=== PATIENT | female | born 1995 | race African-American/Black ===

== ENCOUNTER 2018-04-20 20:31 | Emergency (ER) | payer OTHER ==
[2018-04-20 20:41] VITALS: BP 123/78; PULSE 80; TEMP 98.7; BMI 36.6
--- NOTE | 2018-04-20 20:45 | PDOC ---
History of Present Illness - General History Source: Patient Exam Limitations: No Limitations - History of Present Illness Initial Comments: 04/20/18 21:03 The patient is a 23 year old female with a significant past medical history of asthma(inactive for years) who presents to the emergency department for evaluation of shortness of breath. The patient reports intermittent episodes of shortness of breath while at rest beginning today. The patient denies any triggers to her shortness of breath. The patient states I felt like I was going to pass out. She reports feeling lightheaded for several weeks. The patient reports being advised by her primary care doctor (Dr. Cortez) to visit the emergency department for further evaluation. The patient denies chest pain, cough, lower extremity swelling, palpitations, and headache. Denies fevers, chills, nausea, vomiting, diarrhea, and constipation. Allergies: NKDA Past surgical history: Ovarian cyst (2006), Kyleena IUD, Tonsillectomy. Social history: No reported cigarette, alcohol, or drug use. PCP: Dr. Laron Cortez ([phone]) <Rodrigo Herrera - Last Filed: 04/20/18 21:03> <Carol Garcia - Last Filed: 04/20/18 23:03> - General Chief Complaint: Shortness of Breath Stated Complaint: SOB Past History <Rodrigo Herrera - Last Filed: 04/20/18 21:03> - Past Medical History Anemia: Yes COPD: No - Suicide/Smoking/Psychosocial Hx Smoking History: Never smoked <Carol Garcia - Last Filed: 04/20/18 23:03> - Past Medical History Allergies/Adverse Reactions: Allergies Allergy/AdvReac Type Severity Reaction Status Date / Time No Known Allergies Allergy Unverified 04/20/18 20:32 Home Medications: Ambulatory Orders Albuterol Sulfate Inhaler - [Ventolin HFA Inhaler -] 2 inh PO Q4H PRN #1 inh Review of Systems - Review of Systems Able to Perform ROS?: Yes Comments:: GENERAL/CONSTITUTIONAL: No fever or chills. No weakness. HEAD, EYES, EARS, NOSE AND THROAT: No change in vision. No ear pain or discharge. No sore throat. CARDIOVASCULAR: (+)Chest tightness. (+)Shortness of breath. RESPIRATORY: No cough, wheezing, or hemoptysis. GASTROINTESTINAL: No nausea, vomiting, diarrhea or constipation. GENITOURINARY: No dysuria, frequency, or change in urination. MUSCULOSKELETAL: No joint or muscle swelling or pain. No neck or back pain. SKIN: No rash NEUROLOGIC: No headache, vertigo, loss of consciousness, or change in strength/ sensation. ENDOCRINE: No increased thirst. No abnormal weight change. HEMATOLOGIC/LYMPHATIC: No anemia, easy bleeding, or history of blood clots. ALLERGIC/IMMUNOLOGIC: No hives or skin allergy. <Rodrigo Herrera - Last Filed: 04/20/18 21:03> *Physical Exam - Vital Signs Last Vital Signs Temp Pulse Resp BP Pulse Ox 98.7 F 80 16 123/78 98 04/20/18 20:37 04/20/18 20:37 04/20/18 20:37 04/20/18 20:37 04/20/18 20:37 - Physical Exam Comments: GENERAL: Awake, alert, and fully oriented, in no acute distress HEAD: No signs of trauma EYES: PERRLA, EOMI, sclera anicteric, conjunctiva clear ENT: Auricles normal inspection, hearing grossly normal, nares patent, oropharynx clear without exudates. Moist mucosa NECK: Normal ROM, supple, no lymphadenopathy, JVD, or masses LUNGS: Breath sounds equal, clear to auscultation bilaterally. No wheezes, and no crackles HEART: Regular rate and rhythm, normal S1 and S2, no murmurs, rubs or gallops ABDOMEN: Soft, nontender, normoactive bowel sounds. No guarding, no rebound. No masses EXTREMITIES: Normal range of motion, no edema. No clubbing or cyanosis. No cords, erythema, or tenderness NEUROLOGICAL: Cranial nerves II through XII grossly intact. Normal speech. SKIN: Warm, Dry, normal turgor, no rashes or lesions noted. <Rodrigo Herrera - Last Filed: 04/20/18 21:03> - Vital Signs Last Vital Signs Temp Pulse Resp BP Pulse Ox 98.7 F 80 16 123/78 98 04/20/18 20:37 04/20/18 20:37 04/20/18 20:37 04/20/18 20:37 04/20/18 20:37 <Carol Garcia - Last Filed: 04/20/18 23:03> Medical Decision Making - Medical Decision Making The patient is a 23 year old female with a significant past medical history of asthma who presents to the emergency department for evaluation of shortness of breath. Plan: Chest X-Ray UA ECG <Rodrigo Herrera - Last Filed: 04/20/18 21:03> - Medical Decision Making Patient presents to the ED complaining of shortness of breath. No wheezing or complaint of chest tightness to suggest asthma attack. Labs drawn by PMD earlier today--no anemia. Although the patient is low risk for PE with wells score of 0, she has a Kylena IUD, which secretes estrogen, so she cannot be ruled out by [facility]. I feel that she needs to be evaluated for PE given that there is no other clear explaination for her shortness of breath. Will check d dimer and discharge home if d dimer is negative. WIll check CT PE if d dimer is positive. 04/20/18 21:17 04/20/18 22:53 D dimer is negative and EKG is normal. Will discharge patient home with follow up with her PMD. <Carol Garcia - Last Filed: 04/20/18 23:03> *DC/Admit/Observation/Transfer - Attestations Scribe Attestion: Documentation prepared by Rodrigo Herrera, acting as associate medical director for Carol Garcia MD. <Rodrigo Herrera - Last Filed: 04/20/18 21:03> - Discharge Dispostion Decision to Admit order: No <Carol Garcia - Last Filed: 04/20/18 23:03> Diagnosis at time of Disposition: Shortness of breath - Discharge Dispostion Disposition: HOME Condition at time of disposition: Good - Referrals Referrals: Laron Cortez MD [Primary Care Provider] - - Patient Instructions Printed Discharge Instructions: DI for Shortness of Breath Additional Instructions: return to the ED for severe shortness of breath or chest pain, shortness of breath with fever, other new or worsening symptoms. - Post Discharge Activity
--- NOTE | 2018-04-21 11:22 | EKG ---
Test Reason : Blood Pressure : / mmHG Vent. Rate : 069 BPM Atrial Rate : 069 BPM P-R Int : 152 ms QRS Dur : 094 ms QT Int : 410 ms P-R-T Axes : 052 047 020 degrees QTc Int : 439 ms NORMAL SINUS RHYTHM NORMAL ECG NO PREVIOUS ECGS AVAILABLE Confirmed by BRITNEY LANDERS MD ([id number]) on 04/21/2018 11:21:53 AM Referred By: MIRYAM Confirmed By:BRITNEY LANDERS MD
== END 2018-04-20 23:19 | disposition home or self-care (01) ==
LOC: FER 20:31
DX: J45.909 Unspecified asthma, uncomplicated (principal); R06.02 Shortness of breath
CPT/HCPCS: 36415; 71046-TC-FY; 84703; 85379; 93005; 99281-25

== ENCOUNTER 2020-12-13 11:56 | Emergency (ER) | payer OTHER ==
[2020-12-13 12:17] VITALS: BP 114/68; PULSE 90; TEMP 99.3; BMI 34.7
[2020-12-13] MEDS ORDERED: HIV POST EXPOSURE PROPHYLAXIS KIT NR ONE (12:30)
[2020-12-13] MEDS ORDERED: HEPATITIS B IMMUNE GLOBULIN 1 ML VIAL IM ONE (12:30)
[2020-12-13 12:49] LABS: BASO % 3.3 % (0-2.0); EOS % 3.7 % (0-4.5); HEMOGLOBIN 11.7 GM/dl (10.7-15.3); LYMPH % 27.8 % (8-40); MCH 26.2 pg (25.7-33.7); MCHC 32.6 g/dl (32.0-36.0); MEAN CELL VOLUME 80.5 fl (80-96); MEAN PLT VOLUME 7.8 fl (7.5-11.1); MONO % 4.6 % (3.8-10.2); NEUT % 60.6 % (42.8-82.8); PLATELET COUNT 359 K/MM3 (134-434); RBC 4.48 M/mm3 (3.60-5.2); RDW 14.6 % (11.6-15.6); WHITE BLOOD COUNT 7.9 K/mm3 (4.0-10.8)
[2020-12-13 12:54] LABS: ALBUMIN 4.2 g/dl (3.4-5.0); BILIRUBIN,TOTAL 0.2 mg/dl (0.2-1); CALCIUM 9.2 mg/dl (8.5-10); CREATININE 0.7 mg/dl (0.55-1.3); PHOSPHOROUS 3.5 mg/dl (2.5-4.9); POTASSIUM 3.9 mmol/L (3.5-5.1); TOT PROT 7.5 g/dl (6.4-8.2); URIC ACID 5.2 mg/dl (2.6-7.2)
[2020-12-13] MEDS ORDERED: HIV POST EXPOSURE PROPHYLAXIS KIT PO ONE ×2 (12:56→14:37)
[2020-12-13 14:45] LABS: HIV INTERPRETATION NEGATIVE (NEGATIVE)
== END 2020-12-13 14:53 | disposition home or self-care (01) ==
LOC: FER 11:56
PROC: 3E0234Z Introduction of Serum, Toxoid and Vaccine into Muscle, Percutaneous Approach (ICD-10-PCS; principal; 2020-12-13)
DX: S61.439A Puncture wound without foreign body of unspecified hand, initial encounter (principal); W46.1XXA Contact with contaminated hypodermic needle, initial encounter
CPT/HCPCS: 36415; 80053; 82465; 82977; 83615; 84100; 84478; 84550; 84703; 85025; 86317; 86704; 86706; 86803; 87340; 87389; 90371; 99284-25